=== PATIENT | female | born 1990 | race Asian ===

== ENCOUNTER 2023-12-07 01:36 | Emergency (ER) | payer BC, OTHER ==
[2023-12-07 01:54] VITALS: BP 119/83; PULSE 67; RESP 20; TEMP 97.7; BMI 33.8
[2023-12-07 03:47] LABS: POTASSIUM 3.7 mmol/L (3.5-5.1)
[2023-12-07 03:48] LABS: CALCIUM 8.7 mg/dL (8.5-10.1)
[2023-12-07 03:49] LABS: BLOOD UREA NITROGEN 14.3 mg/dL (7-18); MAGNESIUM 1.7 mg/dL (1.8-2.4)
[2023-12-07 03:52] LABS: CREATININE 0.7 mg/dL (0.55-1.3)
== END 2023-12-07 04:11 | disposition home or self-care (01) ==
LOC: JER 01:36
DX: R20.2 Paresthesia of skin (principal); R53.1 Weakness
CPT/HCPCS: 36415; 80048; 82962; 83735; 99283-25